=== PATIENT | male | born 1965 | race Caucasian/White ===

== ENCOUNTER 2023-07-26 14:31 | Outpatient (CLI) | payer OTHER | END 2023-07-26 14:32 | disposition home or self-care (01) | LOC: ULT 14:31 | PROVIDERS: ATTEND Otolaryngology Otolaryngic Allergy | DX: Z85.850 Personal history of malignant neoplasm of thyroid (principal) | CPT/HCPCS: 76536 ==

== ENCOUNTER 2023-09-06 11:18 | Outpatient (CLI) | payer OTHER | END 2023-09-06 11:19 | disposition home or self-care (01) | LOC: ULT 11:18 | PROVIDERS: ATTEND Otolaryngology Otolaryngic Allergy | DX: Z08 Encounter for follow-up examination after completed treatment for malignant neoplasm (principal); Z85.850 Personal history of malignant neoplasm of thyroid | CPT/HCPCS: 76536 ==

== ENCOUNTER 2024-08-20 12:49 | Outpatient (CLI) | payer OTHER | END 2024-08-20 12:50 | disposition home or self-care (01) | LOC: ULT 12:49 | PROVIDERS: ATTEND Otolaryngology Otolaryngic Allergy | DX: Z08 Encounter for follow-up examination after completed treatment for malignant neoplasm (principal); Z85.850 Personal history of malignant neoplasm of thyroid | CPT/HCPCS: 76536 ==